=== PATIENT | female | born 1955 | race Caucasian/White ===

== ENCOUNTER 2023-01-02 09:05 | Inpatient (IN) | payer OTHER, BC ==
[2023-01-02 09:39] VITALS: BMI 20.7
[2023-01-02] MEDS ORDERED: guaiFENesin 600 MG TABLET.ER (FP) PO PRN (10:51)
[2023-01-02] MEDS ORDERED: COLLOIDAL OATMEAL 1 BAR EACH TP PRN (10:51)
[2023-01-02] MEDS ORDERED: IBUPROFEN 400 MG TABLET (FP) PO PRN (10:51)
[2023-01-02] MEDS ORDERED: POLYETHYLENE GLYCOL (HEALTHYLAX) 3350 17 GM PACKET PO PRN (10:51)
[2023-01-02] MEDS ORDERED: MAGNESIUM HYDROX 2400MG/30ML ORAL SUSPENSION 30 ML CUP PO PRN (10:51)
[2023-01-02] MEDS ORDERED: IBUPROFEN 600 MG TABLET (FP) PO PRN (10:51)
[2023-01-02] MEDS ORDERED: LOPERAMIDE HCL 2 MG CAPSULE PO PRN (10:51)
[2023-01-02] MEDS ORDERED: NALOXONE HCL 0.4 MG/ML VIAL IM PRN (10:51)
[2023-01-02] MEDS ORDERED: BISMUTH SUBSALICYLATE 262 MG/15 ML BTL PO PRN (10:51)
[2023-01-02] MEDS ORDERED: ACETAMINOPHEN 325 MG TABLET (FP) PO PRN (10:51)
[2023-01-02] MEDS ORDERED: NALOXONE HCL (KLOXXADO) 8 MG SPRAY NS PRN (10:51)
[2023-01-02] MEDS ORDERED: MAG HYDROX/AL HYDROX/SIMETH 30 ML UNIT-DOSE CUP PO PRN (10:51)
[2023-01-02] MEDS ORDERED: ONDANSETRON *ODT* 4 MG TABLET SL PRN (10:51)
[2023-01-02] MEDS ORDERED: DICYCLOMINE HCL 10 MG CAPSULE PO PRN (10:51)
[2023-01-02] MEDS ORDERED: BENZONATATE 200 MG CAPSULE PO PRN (10:51)
[2023-01-02] MEDS ORDERED: AMMONIUM LACTATE 12% LOTION 225 GM BOTTLE TP PRN (10:51)
[2023-01-02] MEDS ORDERED: METHOCARBAMOL 500 MG TABLET PO PRN (10:51)
[2023-01-02] MEDS ORDERED: BENZOCAINE/MENTHOL (CHLORASEPTIC ) LOZENGE MM PRN (10:51)
[2023-01-02] MEDS ORDERED: LORazepam 2 MG TABLET ONE (11:08)
[2023-01-02] MEDS: LORazepam 2 MG TABLET PO SCH ×3 (11:10→22:19)
[2023-01-02 17:25] LABS: HIV INTERPRETATION NEGATIVE (NEGATIVE)
[2023-01-02] MEDS: traZODone HCL 50 MG TABLET (FP) PO SCH (22:19)
[2023-01-02] MEDS: THIAMINE HCL 100 MG TABLET (FP) PO SCH (22:19)
[2023-01-02] MEDS: MELATONIN 5 MG TABLETS PO SCH (22:19)
[2023-01-03] MEDS: LORazepam 2 MG TABLET PO SCH ×4 (05:47→22:40)
[2023-01-03] MEDS: PRENATAL VITAMINS W/ FOLIC ACID TABLET (FP) PO SCH (10:22)
[2023-01-03 10:41] LABS: POTASSIUM 4.8 mmol/L (3.5-5.1)
[2023-01-03 10:42] LABS: HEMATOCRIT 37.2 % (32.4-45.2); HEMOGLOBIN 12.3 GM/dL (10.7-15.3); MCH 29.6 pg (25.7-33.7); MCHC 33.1 g/dl (32.0-36.0); MEAN CELL VOLUME 89.2 fl (80-96); MEAN PLT VOLUME 8.7 fl (7.5-11.1); PLATELET COUNT 204 10^3/uL (134-434); RBC 4.17 M/mm3 (3.60-5.2); RDW 15.4 % (11.6-15.6); WHITE BLOOD COUNT 4.4 K/mm3 (4.0-10.0)
[2023-01-03 10:45] LABS: ALBUMIN 3.4 g/dl (3.4-5.0); BLOOD UREA NITROGEN 8.5 mg/dL (7-18); CALCIUM 9.1 mg/dL (8.5-10.1)
[2023-01-03 10:48] LABS: CREATININE 0.9 mg/dL (0.55-1.3)
[2023-01-03 10:50] LABS: BILIRUBIN,TOTAL 0.8 mg/dL (0.2-1); TOT PROT 6.7 g/dl (6.4-8.2)
[2023-01-03] MEDS: BACITRACIN 0.9 GM PACKET TP SCH (19:07)
[2023-01-03] MEDS: traZODone HCL 50 MG TABLET (FP) PO SCH (22:40)
[2023-01-03] MEDS: THIAMINE HCL 100 MG TABLET (FP) PO SCH (22:40)
[2023-01-03] MEDS: MELATONIN 5 MG TABLETS PO SCH (22:40)
[2023-01-04] MEDS ORDERED: hydrOXYzine PAMOATE 25 MG CAPSULE (FP) PO ONE (01:30)
[2023-01-04] MEDS: LORazepam 1 MG TABLET PO SCH ×2 (05:53→10:04)
[2023-01-04] MEDS: PRENATAL VITAMINS W/ FOLIC ACID TABLET (FP) PO SCH (09:50)
[2023-01-04] MEDS: BACITRACIN 0.9 GM PACKET TP SCH (09:50)
[2023-01-04 12:49] VITALS: BP 99/71; PULSE 80; RESP 20; TEMP 98.7
[2023-01-05] MEDS ORDERED: LORazepam 0.5 MG TABLET PO SCH (05:00)
[2023-01-06] MEDS ORDERED: LORazepam 0.5 MG TABLET PO ONE (05:00)
== END 2023-01-04 15:50 | disposition left against medical advice (07) | DRG 894 ==
LOC: YASAS 09:05 → Y3N 11:01
PROVIDERS: ADMIT Allergy & Immunology; ATTEND Surgery
PROC: HZ2ZZZZ Detoxification Services for Substance Abuse Treatment (ICD-10-PCS; principal; 2023-01-02)
DX: F10.230 Alcohol dependence with withdrawal, uncomplicated (principal); F41.9 Anxiety disorder, unspecified; F32.A Depression, unspecified; G47.00 Insomnia, unspecified; T23.17 Burn of first degree of wrist; S01.01XD Laceration without foreign body of scalp, subsequent encounter; W19.XXXD Unspecified fall, subsequent encounter
CPT/HCPCS: 36415; 80053; 82140; 85027; 86780; 87389; C9803-CS; U0003; U0005